=== PATIENT | male | born 1995 | race Caucasian/White ===

== ENCOUNTER → 2021-10-16 | Outpatient (CLI) | payer SELFPAY | END | disposition home or self-care (01) | LOC: LAB SHORT 15:16 | DX: L91.8 Other hypertrophic disorders of the skin (principal) | CPT/HCPCS: 88304; 88305 ==

== ENCOUNTER 2023-04-24 17:11 | Emergency (ER) | payer BC ==
[~2023-04-24] VITALS: Ht 177.8 cm; Wt 171.0 kg
[2023-04-24 17:39] VITALS: BP 161/96
== END 2023-04-24 17:40 | disposition home or self-care (01) ==
LOC: ER 17:11
DX: H92.03 Otalgia, bilateral (principal); H61.23 Impacted cerumen, bilateral
CPT/HCPCS: 99282